=== PATIENT | male | born 1960 | race African-American/Black ===

== ENCOUNTER 2018-07-23 18:38 | Emergency (ER) | payer OTHER ==
[~2018-07-23] VITALS: Ht 177.8 cm; Wt 95.3 kg
[~2018-07-23 18:38] MED LIST: ALLOPURINOL300 MG; INDOMETHACIN50 MG; LISINOPRIL20 MG; LOTRIMIN15 GM; PRAVASTATIN SOD40 MG; TRAMADOL HCL50 MG
[2018-07-23] MEDS ORDERED: METFORMIN HCL850 MG (19:00)
== END 2018-07-23 20:17 | disposition home or self-care (01) ==
LOC: ER 18:38
DX: M10.072 Idiopathic gout, left ankle and foot (principal)

== ENCOUNTER 2019-02-02 07:26 | Emergency (ER) | payer OTHER ==
[~2019-02-02] VITALS: Ht 175.3 cm; Wt 93.0 kg
[~2019-02-02 07:26] MED LIST changes: +METFORMIN HCL850 MG
== END 2019-02-02 10:49 | disposition home or self-care (01) ==
LOC: ER 07:26
DX: M72.2 Plantar fascial fibromatosis (principal)